=== PATIENT | female | born 1955 | race Caucasian/White ===

== ENCOUNTER 2020-11-03 04:55 | Observation (INO) ==
--- NOTE | 2020-10-01 11:28 | PAT Medication Instructions ---
Medication Instructions Date of Service October 01, 2020 Home Medications cholecalciferol (vitamin D3) [Vitamin D3] 4,000 unit PO QPM ibuprofen 400 mg PO Q6H PRN levothyroxine 62.5 mcg PO QAM magnesium oxide 400 mg PO QPM multivitamin 1 tab PO QPM omega 4-ytw-fza-fish oil [Fish Oil] 1 cap PO QPM ASK your surgeon for instructions ibuprofen 400 mg PO Q6H PRN STOP taking 2 weeks before surgery (or as soon as possible if surgery is within 2 weeks) omega 2-hec-yrx-fish oil [Fish Oil] 1 cap PO QPM Take morning of surgery With a small sip of water, OTHERWISE NOTHING TO EAT OR DRINK AFTER MIDNIGHT: levothyroxine 62.5 mcg PO QAM Take evening before surgery cholecalciferol (vitamin D3) [Vitamin D3] 4,000 unit PO QPM magnesium oxide 400 mg PO QPM multivitamin 1 tab PO QPM Other Notes If you have any questions please call us at [phone] or [phone] or [phone] or [phone]
--- NOTE | 2020-10-05 08:19 | History & Physical Report ---
Date of Service October 05, 2020 Date of surgery: 11/03/20 Procedure: Right Total Knee Arthroplasty Assessment & Plan (1) Arthritis of right knee: Risks and benefits of procedure discussed in detail today, patient would like to proceed with a Right total knee replacement at [facility] as scheduled. will obtain medical clearance from Dr Chaidez prior to surgery as well as obtain PATs at [facility]. Will place on ASA 81mg po bid x 1 month post op, f/u 2 weeks post op for routine post-operative care and x-ray, sooner if having any problems. will make arrangements for HHPT at the time of discharge. At this point in time, has failed conservative measures and would like to proceed with surgical intervention. The risks and benefits have been discussed including, but not limited to, risk of infection, nerve injury, stiffness, loss of motion, failure to improve, etc. Reasonable outcomes and options of treatment were discussed. An explanation of appropriate alternatives to the procedure that may be advantageous were discussed and their risks and benefits, as well as the risks and benefits of not proceeding with treatment. I offered to answer any additional inquiries concerning the treatment involved. All the patient's questions were answered. The patient is agreeable, understanding of the treatment plan and alternatives, and wishes to proceed with the treatment plan. History of Present Illness Chief Complaint: Right knee pain Primary Care Provider: NO PCP Sue is a 64 year old female who complains of Right knee pain, presents for pre-op evaluation prior to a Right total knee replacement by Dr Melgar at [facility]. She complains of pain, decreased range of motion, instability and stiffness in her Right knee. She states that the symptoms have been chronic and non-traumatic and are moderate-severe. The pain is described as aching, sharp and throbbing. Her symptoms are aggravated by ascending stairs, daily activities, first steps while awake walking. Prior NSAIDs include IBU and Aleve. she has been treated with previous visco injections in the past without much relief. she had prior right knee scope in 2017, Dr Melgar Performed RIGHT KNEE ARTHROSCOPIC PARTIAL MEDIAL MENISCECTOMY CHONDROPLASTY PATELLA and medial femoral condyle. Allergies Allergy/AdvReac Type Severity Reaction Status Date / Time No Known Allergies Allergy Verified 09/15/20 13:18 Home Medications Medication Instructions Recorded Confirmed Type cholecalciferol (vitamin D3) 4,000 unit PO QPM 09/15/20 09/15/20 History [Vitamin D3] ibuprofen 400 mg PO Q6H PRN 09/15/20 09/15/20 History levothyroxine 62.5 mcg PO QAM 09/15/20 09/15/20 History magnesium oxide 400 mg PO QPM 09/15/20 09/15/20 History multivitamin 1 tab PO QPM 09/15/20 09/15/20 History omega 7-msm-rvu-fish oil [Fish Oil] 1 cap PO QPM 09/15/20 09/15/20 History Past Med/Surg History Medical History Arthritis Cancer BASAL CELL Cardiac murmur HX Chronic back pain NECK/LOWER BACK Hypothyroidism Tachycardia HX -NO LONGER F/U CARDIOLOGY Surgical History Elective surgery VAGINAL BX H/O cardiac radiofrequency ablation 2008-[facility] History of cardiac cath 2008 [facility]-NO STENTS History of colonoscopy History of eye surgery MUSCLE REPAIR History of surgery on arm History of tonsillectomy Nausea and vomiting after administration of anesthetic agent Family History Mother Family hx of colon cancer Social History Smoking Status: Never smoker Second Hand Exposure: Yes (PARENTS SMOKED); Hx Alcohol Use: Yes Alcohol type: other Hx Substance Use: No Preferred Language: Chadian Communication Ability: Effective Sports Marketing Specialist Required: No Beliefs That Will Affect Care: None Current Living Situation: Spouse Feels Safe at Home: Yes Assistive Devices: Glasses Review of Systems Review of Systems: All systems reviewed & are unremarkable except as noted in HPI & below Constitutional: no fever, no chills and no sweats Respiratory: no cough and no dyspnea Cardiovascular: no chest pain, no dyspnea and no orthopnea Gastrointestinal: no abdominal pain, no nausea and no vomiting Musculoskeletal: as per Subjective / HPI Physical Exam Physical Exam: HT: 5ft 7in WT: 90.7kg BP: 116/80 Pulse: 84 Constitutional: WD/WN, vitals as above no acute distress Respiratory: normal respiratory effort, lungs clear to auscultation no res piratory distress, no labored breathing and does not use accessory muscles Cardiovascular: RRR, no murmur, no edema Gastrointestinal (Abdomen): normal bowel sounds, soft, nontender, no hepatosplenomegaly Musculoskeletal: Knee: + knee abnormal to inspection (Right Knee-), + effusion (+1 effusion), + surgical incision (well healed portals), + limited ROM of knee (ROM 0/3/110), + knee ROM with crepitation, + joint line tenderness (medial joint line) and + Sabrina's sign positive; no deformity, no skin erythema, no ecchymosis, no valgus laxity, no varus laxity, anterior drawer test negative, Sheldon's sign negative and pivot shift test negative Results & Data Results & Data ([facility]) Diagnostic Findings Right Knee X-ray: Right knee series showing advanced degenerative changes to the right knee, narrowing of the medial compartment and patello-femoral joint with patellar spurring noted, findings showing joint space narrowing of the medial compartment and patello-femoral joint, osteophyte formation and subchondral sclerosis noted. overall varus alignment. no acute bony pathology noted.
--- NOTE | 2020-10-05 12:41 | Anesthesiology Consultation ---
Date of Service October 05, 2020 Assessment & Plan (1) Encounter for pre-operative examination: COVID screening: Per assessment on 10/05: Travel screen negative, no known COVID- 19 positive contacts or current COVID-19 related symptoms. Surgeon arranging preop COVID testing. Awaiting results. Chart Review Chart Review: Acceptable Risk for Surgery and Patient seen in Pre Admission Testing Teaching & Discussion Pre-Anesthesia Teaching/Discussion Notes: Instructed NPO after midnight before surgery,except medications with 15 cc of water. Medication instructions provided according to the PAT guidelines. History Surgery Operation Date: 11/03/20 08:00 Proposed Procedures p Right Total Knee Arthroplasty - Myron Melgar DO Height/Weight Height: 5 ft 7 in Weight: 91.9 kg Allergies Allergy/AdvReac Type Severity Reaction Status Date / Time No Known Allergies Allergy Verified 09/15/20 13:18 Medications Home Medications Medication Instructions Recorded Confirmed Last Taken cholecalciferol (vitamin D3) 4,000 unit PO QPM 09/15/20 09/15/20 Unknown [Vitamin D3] ibuprofen 400 mg PO Q6H PRN 09/15/20 09/15/20 Unknown levothyroxine 62.5 mcg PO QAM 09/15/20 09/15/20 Unknown magnesium oxide 400 mg PO QPM 09/15/20 09/15/20 Unknown multivitamin 1 tab PO QPM 09/15/20 09/15/20 Unknown omega 8-uag-ror-fish oil [Fish Oil] 1 cap PO QPM 09/15/20 09/15/20 Unknown Past Medical History Medical History Arthritis Cancer BCC Chronic back pain Neck/LBP Hypothyroidism Tachycardia remote hx s/p ablation (2008), no known recurrences, no issues since Exercise / Class Metabolic Activity II 4-5 Yardwork/Stairs/Walk up hill Past Family History Family History Mother Family hx of colon cancer Past Surgical History Surgical History H/O cardiac radiofrequency ablation 2008 ([facility]) History of biopsy Vaginal History of cardiac cath 2008 ([facility]) > no stents History of colonoscopy History of eye surgery Muscle repair History of surgery on arm History of tonsillectomy Past Anesthesia History No Hx of Anesthesia Complications (except remote hx PONV) History of PONV History of PONV (remote hx (no issue with more recent surgeries)) Social History Smoking Status: Never smoker Do You Dip or Chew Tobacco: No Hx Alcohol Use: Yes Alcohol type: other (Rare wine cooler) Hx Substance Use: No Review of Systems Patient denies chest pain, shortness of breath, dyspnea on exertion, fever, chills, cough, wheezing, palpitations. Physical Exam Vital Signs VITALS BP 129/75 P 93 TEMP 98.2 SP02 95%RA RESP 16 PHYSICAL Full cervical extension range of motion. Full TMJ range of motion. TMD 4 finger breaths Mallampati Score 3 Dentition: missing molars Lungs: clear throughout to auscultation Cardiac: regular rate and rhythm, no murmurs noted Spine: normal Carotid arteries: negative bruit Extremities: no edema Lab Results Anesthesia Preop Results Results Anesthesia Widget: WBC 4.50 K/uL (4.8-10.8) L 10/05/20 Hgb 13.0 g/dL (12.0-16.0) 10/05/20 Hct 39.9 % (37-47) 10/05/20 Plt 175 K/uL (130-400) 10/05/20 Na 143 mmol/L (136-145) 10/05/20 K 3.9 mmol/L (3.5-5.1) 10/05/20 Cl 109 mmol/L (98-107) H 10/05/20 CO2 28 mmol/L (21-32) 10/05/20 BUN 21 mg/dl (7-18) H 10/05/20 Creat 0.68 mg/dl (0.6-1.2) 10/05/20 Glucose Level 110 mg/dl (70-99) H 10/05/20 PT 9.8 Seconds (9.0-12.0) 10/05/20 PTT 21.9 Seconds (21.0-31.0) 10/05/20 INR 1.0 (0.9-1.1) 10/05/20 HA1c 5.7 % (4.5-5.6) H 10/05/20 Urine Color Yellow 10/05/20 Urine Appearance Clear (Clear) 10/05/20 Urine pH 6.0 (4.5-7.5) 10/05/20 Urine Specific [place] 1.025 (1.000-1.030) 10/05/20 Urine Protein Negative (Negative) 10/05/20 Urine Glucose (UA) Negative (Negative) 10/05/20 Urine Ketones Negative (Negative) 10/05/20 Urine Blood Negative (Negative) 10/05/20 Urine Nitrite Negative (Negative) 10/05/20 Urine Bilirubin Negative (Negative) 10/05/20 Urine Urobilinogen Negative (Negative) 10/05/20 Urine Leukocyte Esterase Negative (Negative) 10/05/20 Blood Type A Positive 10/05/20 Antibody Screen POSITIVE A 10/05/20 Lab Comments: Blood bank aware of positive antibodies > nothing further needed preoperatively from PAT per blood bank. Testing Electrocardiogram Date: 10/05/20 Findings: + NSR @ (88) Chest X-Ray Date: 10/05/20 Findings: + NAD
[2020-11-03] MEDS ORDERED: ACETAMINOPHEN 500 MG TAB PO SCH ×2 (06:00→14:00)
[2020-11-03] MEDS ORDERED: TRANEXAMIC ACID 1,000 MG **IV Intra-op IV SCH (06:00)
[2020-11-03] MEDS ORDERED: FAMOTIDINE 20 MG TAB PO SCH (06:00)
[2020-11-03] MEDS ORDERED: CeleBREX 200 MG CAP PO SCH (06:00)
[2020-11-03] MEDS ORDERED: GABAPENTIN 600 MG DOSE PO SCH (06:00)
[2020-11-03] MEDS ORDERED: TRANEXAMIC ACID 1,000 MG **IV Pre-op IV SCH (06:00)
[2020-11-03] MEDS ORDERED: dexAMETHasone 4 MG TAB PO SCH (06:00)
[2020-11-03] MEDS ORDERED: ROPIVACAINE 0.5% HCL/PF 150 MG, BUPIVACAINE 0.75% MPF 20 ML, EPINEPHrine 30MG/30ML (OR ... INSTIL SCH (06:00)
[2020-11-03] MEDS ORDERED: ceFAZolin 2000MG 2,000 MG/15 ML SYR IV SCH (06:00)
[2020-11-03] MEDS ORDERED: METOCLOPRAMIDE HCL 10 MG TABLET PO SCH (06:00)
[2020-11-03] MEDS ORDERED: LR 500ML BOLUS, THEN 15ML/HR IV SCH (06:00)
[2020-11-03] MEDS ORDERED: LIDOCAINE 2%/EPINEPHRINE 1:200,000 20 ML SDV ONE (06:17)
[2020-11-03] MEDS ORDERED: EPINEPHrine INJ 1 MG/ML AMP ONE (06:17)
[2020-11-03] MEDS ORDERED: ROPIVACAINE 0.5% 5 MG/ML 30 ML VIAL ONE ×2 (06:18→06:19)
[2020-11-03] MEDS ORDERED: SODIUM CHLORIDE 0.9% INJ 10 ML VIAL ONE (06:20)
[2020-11-03] MEDS ORDERED: ORTHO JOINT ANESTHETIC ONE (06:37)
[2020-11-03] MEDS ORDERED: MIDAZOLAM HCL 1 MG/ML 2ML VIAL ONE ×2 (06:42)
--- NOTE | 2020-11-03 07:04 | History & Physical Bridge Note ---
Date of Service November 03, 2020 History & Physical Bridge Note I have examined the patient, reviewed the History & Physical and in the interval since the performance of the History & Physical I have noted the following changes of clinical significance: no changes noted
[2020-11-03] MEDS ORDERED: LABETALOL HCL IV 5 MG/ML 20ML IV PRN (07:17)
[2020-11-03] MEDS ORDERED: HYDROmorphone INJ 1 MG/ML SYRINGE IV PRN ×2 (07:17→08:49)
[2020-11-03] MEDS ORDERED: PHENYLEPHRINE 100MCG/ML 5ML SYR IV PRN (07:17)
[2020-11-03] MEDS ORDERED: fentaNYL citrate 100 MCG/2 ML VIAL IV PRN (07:17)
[2020-11-03] MEDS ORDERED: MEPERIDINE HCL 25 MG/ML CARP/VIAL IV PRN (07:17)
[2020-11-03] MEDS ORDERED: ePHEDrine sulfate 50 MG/ML AMP IV PRN (07:17)
[2020-11-03] MEDS ORDERED: ONDANSETRON INJ 2 MG/ML 2 ML VIAL IV PRN ×2 (07:17→08:49)
[2020-11-03] MEDS ORDERED: ATROPINE SULFATE 0.1 MG/ML 10ML SYR IV PRN (07:17)
[2020-11-03] MEDS ORDERED: KETAMINE 50 MG/5 ML SYRINGE ONE (07:19)
[2020-11-03] MEDS ORDERED: LIDOCAINE 2% 2 ML VIAL/AMP(20MG/ML) INFIL ONE (07:44)
[2020-11-03] MEDS ORDERED: GLYCOPYRROLATE 0.2 MG/ML VIAL ONE (07:44)
[2020-11-03] MEDS ORDERED: ONDANSETRON INJ 2 MG/ML 2 ML VIAL ONE (07:44)
[2020-11-03] MEDS ORDERED: PROPOFOL IV EMULSION 10 MG/ML 20 ML VIAL IV ONE ×2 (07:44→07:55)
[2020-11-03] MEDS ORDERED: KETOROLAC 30 MG/ML VIAL ONE (07:55)
--- NOTE | 2020-11-03 08:11 | Operative Report ---
Post Operative Report Pre & Post Diagnosis Operation Date: 11/03/20 07:00 Pre-Op Diagnosis: Right knee primary osteoarthritis. Post-Op Diagnosis: Right knee primary osteoarthritis. I identified the patient and participated in the time-out.: Yes Procedure Operation Date: 11/03/20 07:00 Actual Procedures p Right Total Knee Arthroplasty utilizing Segura & NephBarEye journey 2 patient matched total knee arthroplasty size femur 5 tibia 3 polyeleven patella 32 oval- Myron Melgar DO Surgeon Myron Melgar DO Purchasing Clerk [place] Estimated Blood Loss 5 Findings Consistent with Post-Op Diagnosis Patient presents with severe end-stage tricompartmental degenerative joint disease [id number] eburnated bone marginal osteophyte subchondral sclerosis subchondral cystic changes moderate to large effusion Specimens Bone and cartilage Drains Medium bore Hemovac Anesthesia Type MAC Epidural Regional Complications none Disposition Accompanied Patient To Recovery: No Disposition: Recovery Room Indications Patient presents with severe end-stage tricompartmental degenerative joint disease no response to conservative management physical therapy relative rest activity modification corticosteroid injection Visco supplementation relative rest activity modification Description of Procedure After proper prepping and draping of the Right lower extremity anterior midline incision was made over the region of the extensor extensor mechanism after meticulous hemostasis was obtained and maintained in subcutaneous tissues a medial parapatellar incision was made The patella was subluxed lateralward the medial lateral gutter were cleaned from any hypertrophic synovitis and scar tissue of the distal femoral block was placed and the distal femoral osteotomy cut was made subsequently the chamfers anterior and posterior osteotomy cuts were made utilizing the 4-in-1 block the tibia was subsequently subluxed anteriorward medial and ateral meniscal remnants were excised in their entirety remnants of the anterior and posterior cruciate ligaments were excised in their entirety excellent exposure of the proximal tibia was obtained the tibial osteotomy guide was placed on the proximal tibial osteotomy cut was made once again the knee was irrigated with copious amounts of sterile saline solution the patella was subsequently everted lateralward thickened scar tissue around the patella was removed the patella was subsequently cut utilizing a freehand technique and was drilled prepared for final preparation and placement of patella socially flexion-extension gaps were checked and the equal and symmetric trials were placed to the appropriate femoral and tibial trials with poly-spacer being placed for equal flexion and extension gaps and full range of motion including extension to 0 and flexion to 140 the trial components after having been taken to recovery range of motion was subsequently removed meticulous hemostasis was obtained and maintained subsequently a knee block injection of joint cocktail including ropivacaine 0.5% 150 mg. Bupivacaine 0.5% epinephrine 1-200,030 mL's toradol 30 mg dexamethasone 4 mg ketamine 10 mg clonidine 100 micrograms normal saline solution 30 mg was infiltrated into the soft tissues of the posterior knee medial lateral gutters and periosteal synovium special attention was paid to protect neurovascular structures at all times subsequently trial components having been removed the knee was irrigated with sterile saline solution. debris was removed the proximal tibia was subsequently prepared and was made ready for the placement of the tibial component tibial component was also cemented and tamped into position the femoral component was subsequently placed and cemented in the position the patellar component was subsequently cemented in position because hemostasis once again obtained and maintained wound having been thoroughly irrigated with debridement and debridement lavage was performed as well as a medial parapatellar incision closed with #1 Vicryl in interrupted fashion subcutaneous was closed with #2 Vicryl skin was closed with skin clips. PA-C was necessary for prepping and drapping as well as wound closure of deep fascia Sub cutaneous tissue and skin and was necessary for the case. A sterile compressive dressing was placed patient was taken to recovery in stable condition of report dictated by Ramón I attest to the content of the Intraoperative Record and any orders documented therein. Any exceptions are noted below. I attest to the content of the Intraoperative Record and any orders documented therein. Any exceptions are noted below.
[2020-11-03] MEDS ORDERED: NALOXONE HCL 0.4 MG/1 ML VIAL/CARP IV PRN ×2 (08:49→18:32)
[2020-11-03] MEDS ORDERED: SODIUM CHLORIDE 0.9% 1000ML 1,000 ML IV SCH (09:00)
--- NOTE | 2020-11-03 09:15 | XRay Report ---
XR knee RT 1 or 2V routine CLINICAL HISTORY: Postoperative evaluation. COMPARISON: None FINDINGS: Alignment of the total right knee arthroplasty is anatomic. No periprosthetic fracture or unexpected radiopaque foreign body. There are surgical drains. IMPRESSION: Expected findings following total right knee arthroplasty. ACT 112: Negative or not required by law. Electronically signed by: Jose E Sharma M.D. 11/03/2020 9:14 AM
--- NOTE | 2020-11-03 09:33 | Anesthesiology Progress Note ---
Date of Service November 03, 2020 Anesthesia Post Procedure Vital Signs Vital Signs: Temp Pulse Pulse Resp BP BP Pulse Ox 11/03/20 09:20 36.4 C L 82 16 117/69 96 11/03/20 09:10 78 20 108/60 97 11/03/20 09:00 82 20 124/84 97 11/03/20 08:50 89 20 131/61 98 11/03/20 08:46 36.6 C 94 H 20 132/61 96 11/03/20 05:24 36.5 C 82 20 162/85 H 98 Pain Intensity Right Knee: Pain Intensity: 0 Transfer of Care Handoff Completed per policy Notes Mental Status: alert / awake / arousable Patient Amnestic to Procedure: Yes Nausea / Vomiting: adequately controlled Pain: adequately controlled Airway Patency, RR, SpO2: stable & adequate BP & HR: stable & adequate Hydration State: stable & adequate Neuraxial Anesthesia: was administered and sensory block is resolving Anesthetic Complications: no major complications apparent and Pt Satisfied with anesthetic care
[2020-11-03] MEDS: oxyCODONE HCL IR 5 MG TAB (IMMEDIATE RELEASE) PO PRN ×2 (13:18→20:09)
[2020-11-03] MEDS ORDERED: bisacodyL 10 MG SUPP PR PRN (18:32)
[2020-11-03] MEDS ORDERED: MAGNESIUM HYDROXIDE SUSP 30 ML UDC PO PRN (18:32)
[2020-11-03] MEDS: ceFAZolin 2000MG 2,000 MG/15 ML SYR IV SCH (20:08)
[2020-11-03] MEDS: KETOROLAC 30 MG/ML VIAL IV SCH (20:09)
[2020-11-03] MEDS ORDERED: CHOLECALCIFEROL 1,000 UNITS 25 MCG TAB PO SCH (21:00)
[2020-11-03] MEDS ORDERED: MAGNESIUM OXIDE 400 MG TAB PO SCH (21:00)
[2020-11-03] MEDS ORDERED: SENNA 8.6 MG TAB PO SCH (21:00)
[2020-11-03] MEDS: ASPIRIN 81 MG ECTAB PO SCH (21:31)
[2020-11-03] MEDS: DOCUSATE SODIUM 100 MG CAP PO SCH (21:32)
[2020-11-04] MEDS: KETOROLAC 30 MG/ML VIAL IV SCH ×3 (03:09→14:11)
[2020-11-04 06:15] LABS: Hemoglobin 11.8 g/dL (12.0-16.0); Mean Corpuscular Hemoglobin 28.8 pg (25-34); Mean Corpuscular Hgb Conc 32.8 g/dL (32-36); Mean Corpuscular Volume 87.8 fL (80-100); Mean Platelet Volume 10.3 fL (7.4-10.4); Platelet Count 187 K/uL (130-400); RDW Coefficient of Variation 13.7 % (11.5-14.5); RDW Standard Deviation 44.2 fL (36.4-46.3); White Blood Count 10.01 K/uL (4.8-10.8)
[2020-11-04] MEDS: oxyCODONE HCL IR 5 MG TAB (IMMEDIATE RELEASE) PO PRN ×2 (06:25→12:27)
[2020-11-04] MEDS: ceFAZolin 2000MG 2,000 MG/15 ML SYR IV SCH (06:25)
[2020-11-04] MEDS ORDERED: LEVOTHYROXINE SODIUM 125 MCG TABLET PO SCH (06:30)
[2020-11-04 06:54] LABS: BUN Creatinine Ratio 29.1 (10-20); Calcium 8.9 mg/dl (8.5-10.1); Creatinine Clr Calc Pharmacy 98.7 ml/min; Est GFR (African American) 107.9 ml/min; Est GFR (Non-African American) 93.1 ml/min; Potassium 4.3 mmol/L (3.5-5.1)
[2020-11-04] MEDS ORDERED: MULTIVITAMIN TAB PO SCH (09:00)
[2020-11-04] MEDS: ASPIRIN 81 MG ECTAB PO SCH (09:10)
[2020-11-04] MEDS: DOCUSATE SODIUM 100 MG CAP PO SCH (09:10)
--- NOTE | 2020-11-04 10:09 | Orthopedic Progress Note ---
Date of Service November 04, 2020 Assessment & Plan (1) Arthritis of right knee: Postop day 1 status post right total knee arthroplasty. PT/OT protocols. Weightbearing as tolerated. DVT prophylaxis-aspirin p.o. twice daily, SCDs, ROBERT addison. Pain management as written. Overflow incontinence with urinary retention continue High catheter today. We will see if she is able to void. I have discussed this with the urology team. If she is unable to void today, we will reinsert the High catheter and let it remain for 7 days. At that point she can either follow-up with urology service in [place] or come back to [place] to see [facility] urology group to have the catheter removed and begin voiding trials. [place] planning-home health services upon discharge. Admission and Anticipated Discharge Date Admission Date: November 03, 2020 Subjective Postop day 1 Patient sitting up in bed awake and alert. No complaints this morning. Pain is controlled. Patient was held from discharge last night secondary to overflow incontinence which was felt to be secondary to her spinal anesthesia. This morning she continues to have the High catheter in which we will removed today. We discussed removal of catheter to see if she will be able to void. Physical Exam Physical Exam: Dressings are clean, dry, and intact. Calves are soft nontender. Neurovascular is intact. Toes are mobile. She has good dorsiflexion and plantarflexion of the right foot. Results & Data ([facility]) Vital Signs (Past 12 Hours) Vital Signs Temp Pulse Resp BP Pulse Ox 11/04/20 07:30 36.4 C L 73 16 130/72 93 11/04/20 03:11 36.6 C 83 16 137/73 98 Laboratory Results Laboratory Results WBC 10.01 K/uL (4.8-10.8) 11/04/20 05:23 RBC 4.10 M/uL (4.2-5.4) L 11/04/20 05:23 Hgb 11.8 g/dL (12.0-16.0) L 11/04/20 05:23 Hct 36.0 % (37-47) L 11/04/20 05:23 MCV 87.8 fL (80-100) 11/04/20 05:23 MCH 28.8 pg (25-34) 11/04/20 05:23 MCHC 32.8 g/dL (32-36) 11/04/20 05:23 RDW Std Deviation 44.2 fL (36.4-46.3) 11/04/20 05:23 RDW Coeff of Paramjit 13.7 % (11.5-14.5) 11/04/20 05:23 Plt Count 187 K/uL (130-400) 11/04/20 05:23 MPV 10.3 fL (7.4-10.4) 11/04/20 05:23 Sodium 139 mmol/L (136-145) 11/04/20 05:23 Potassium 4.3 mmol/L (3.5-5.1) 11/04/20 05:23 Chloride 109 mmol/L (98-107) H 11/04/20 05:23 Carbon Dioxide 26 mmol/L (21-32) 11/04/20 05:23 Anion Gap 4.0 (3-11) 11/04/20 05:23 BUN 20 mg/dl (7-18) H 11/04/20 05:23 Creatinine 0.68 mg/dl (0.6-1.2) 11/04/20 05:23 Est Cr Clr Drug Dosing 98.7 ml/min 11/04/20 05:23 Est GFR ( Amer) 107.9 ml/min 11/04/20 05:23 Est GFR (Non-Af Amer) 93.1 ml/min 11/04/20 05:23 BUN/Creatinine Ratio 29.1 (10-20) H 11/04/20 05:23 Glucose 110 mg/dl (70-99) H 11/04/20 05:23 Calcium 8.9 mg/dl (8.5-10.1) 11/04/20 05:23 COVID-19 [facility] 11/03/20 20:23 SARS-CoV-2, RNA, NAAT NEGATIVE (NEGATIVE) 11/03/20 20:23 Blood Type A Positive 11/03/20 05:47 Antibody Screen POSITIVE A 11/03/20 05:47 Antibody Identification Anti-Jka 11/03/20 05:47 Antibody ID Comment 11/03/20 05:47 Crossmatch See Detail 11/03/20 05:47 Impressions Knee X-Ray 11/03/20 08:51 XR knee RT 1 or 2V routine CLINICAL HISTORY: Postoperative evaluation. COMPARISON: None FINDINGS: Alignment of the total right knee arthroplasty is anatomic. No periprosthetic fracture or unexpected radiopaque foreign body. There are surgical drains. IMPRESSION: Expected findings following total right knee arthroplasty. ACT 112: Negative or not required by law. Electronically signed by: Jose E Sharma M.D. 11/03/2020 9:14 AM
--- NOTE | 2020-11-07 19:45 | Discharge Summary ---
Date of Service date of discharge: November 04, 2020 date of admission: 11/03/20 Admission HPI Per Admitting Provider Sue is a 64 year old female who complains of Right knee pain, presents for pre-op evaluation prior to a Right total knee replacement by Dr Melgar at [facility]. She complains of pain, decreased range of motion, instability and stiffness in her Right knee. She states that the symptoms have been chronic and non-traumatic and are moderate-severe. The pain is described as aching, sharp and throbbing. Her symptoms are aggravated by ascending stairs, daily activities, first steps while awake walking. Prior NSAIDs include IBU and Aleve. she has been treated with previous visco injections in the past without much relief. she had prior right knee scope in 2017, Dr Melgar Performed RIGHT KNEE ARTHROSCOPIC PARTIAL MEDIAL MENISCECTOMY CHONDROPLASTY PATELLA and medial femoral condyle. Principal Diagnosis right knee arthritis Discharge Exam Constitutional WD/WN, vitals as above Musculoskeletal Right Knee: NVDI, calf SNT, negative angelica sign. DP palpable, able to wiggle toes/ankle movement without difficulty. SONJA dressing clean dry and intact. expected post-operative bruising noted. Discharge Data Allergies Allergy/AdvReac Type Severity Reaction Status Date / Time No Known Allergies Allergy Verified 11/03/20 05:30 Procedures Performed Operation Date: 11/03/20 07:00 Actual Procedures p Right Total Knee Arthroplasty(Right) - Myron Melgar, Ordered Studies 11/03/20 05:00 US - OR guided needle placemen Routine Hospital Course (1) Arthritis of right knee: Postop day 1 status post right total knee arthroplasty. PT/OT protocols. Weightbearing as tolerated. DVT prophylaxis-aspirin p.o. twice daily, SCDs, ROBERT addison. Pain management as written. Overflow incontinence with urinary retention continue High catheter today. We will see if she is able to void. I have discussed this with the urology team. If she is unable to void today, we will reinsert the High catheter and let it remain for 7 days. At that point she can either follow-up with urology service in [place] or come back to [place] to see [facility] urology group to have the catheter removed and begin voiding trials. DC planning-home health services upon discharge. Total Time Total Time Spent Total Time Spent (In Minutes): 20 Total Time Includes: Examination of the Patient, Discharge Planning and Medication Reconciliation Discharge Plan Discharge Items Patient Disposition: Home - Home Health Services Reason For Visit: Z01.818, Primary Osteoarthritis, Right Knee Discharge Diagnosis: right total knee replacement Activity: Per Instructions section Lifting: Wait until after follow-up appointment Weightbearing Comment: WBAT with walker Non-emergency contact: Surgeon Call non-emergency contact if: you have any medication questions, your temperature is above 101, your wound has increased redness, your wound has increased drainage and your wound pain has increased Follow-up/Referrals: [facility] [Outside] (PER SURGEON'S OFFICE) Reymundo Chaidez [Primary Care Provider] - Diet: Regular Addtl Attending Provider Instructions: ACTIVITY RECOMMENDATIONS: SELF CARE INSTRUCTIONS AFTER TOTAL KNEE REPLACEMENT A. You may need to continue a physical therapy program after discharge from the hospital. There are several options available to you. Your doctor will assist you in selecting the best one for you. 1. An out-patient facility 2 to 3 times a week for therapy or home therapy. 2. Continue working on all exercises taught to you in the hospital. Your goals should be to increase bending of your knee to 90 degrees and beyond and to fully straighten your knee. B. You may progress at your own pace from walking with a walker or crutches to a cane; then to no assistive devices. C. Make walking a part of your daily routine. Be up as much as comfortable with rest periods throughout the day. Rest with leg elevation is very important. Use the ice wrap frequently for the first 3-4 weeks. D. There are no restrictions on activities. You may ride in a car, shop, participate in chairman emeritus and all social activities. E. Wear the long elastic stockings (ROBERT hose) 20 hours a day for 2 weeks after surgery. They can be removed several times a day for laundering and for a bath. F. You may shower, no tub baths until cleared by your doctor. SPECIAL CARE INSTRUCTIONS: VERY IMPORTANT TO READ AND REVIEW A. There are a few signs you need to watch for after you are home. Call [facility] if you notice any of the followin. Increased severe knee pain. Some pain is expected especially when you exercise. 2. Increased swelling in your leg or knee; pain or swelling of the calf muscle in either lower leg. 3. Any fluid drainage from the incision. 4. Shortness of breath or chest pain. B. Please call [facility] at if you have any concerns or questions about your operation or recovery. The doctor or his nurse will return your call promptly. C. You must take antibiotics before dental work, bladder, bowel or other surgery. Your doctor will provide you with a permanent care to carry describing this precaution. IMPORTANT: * REMEMBER TO TAKE ASPIRIN, 81 MG, TWICE DAILY FOR 4 WEEKS UNLESS OTHERWISE DIRECTED. THIS IS YOUR BLOOD THINNER. * HIGH RISK PATIENTS MAY BE PRESCRIBED A STRONGER BLOOD THINNER. THIS WILL BE PROVIDED AT DISCHARGE. * CALL IF INCREASED PAIN, REDNESS, DRAINAGE OR FEVER GREATER THAT 101. * WEAR ROBERT HOSE 20 HOURS PER DAY FOR 2 WEEKS. * SONJA Dressing- This is a large suction dressing covering your incision. This will help pull any excess drainage from the wound and allow your incision to heal properly. You may shower with this if you can keep the unit outside of the shower. If any bleeding or leakage is noted please call your doctor's office. This will remain on your incision for 7 days and then should be removed. This can be done yourself or by the home nursing staff if applicable. The entire unit is disposable once removed. Once removed, keep incision clean and dry. If redness or drainage is noted, please call your surgeon. * Should you have any further problems with urinary retention or incontinence, please contact your Urology service either locally or [facility]. ONCE SONJA IS REMOVED, FOLLOW THESE INSTRUCTIONS: DERMABOND Prineo- This is a mesh tape dressing that is covered with glue. It should remain in place until the incision is properly healed, usually 10-14 days. This dressing is designed to naturally slough off. You may trim the excess mesh tape as it peels off. Incision may be briefly wet in a shower. Dry immediately by blotting with a clean, dry towel. Do not bath or swim until instructed by your doctor. Do not scratch, rub, or pick at the dressing. Do not apply any topical ointments or lotions until dressing is completely removed and/or instructed by your doctor. There may be a small piece of suture material at one end of your incision. Do not pull or trim this. If it is bothersome or catching on clothing, you may cover it with a band-aid. IF INCISION IS LEAKING THROUGH DRESSING, CALL THE OFFICE . FOLLOW UP VISIT: If appointment is not already scheduled: Please call [facility] to make a follow-up appointment for 2 weeks after your surgery at . Pending Studies at Discharge: No Stand-Alone Forms: Anesthesia/Sedation, Adult, [facility], Opioid Pain Management Medications and DC Order Prescriptions: New acetaminophen 500 mg Tablet 1,000 mg PO Q8 21 Days Qty: 126 RF: 0 oxycodone 5 mg Tablet 5 - 10 mg PO Q6H PRN (Reason: pain) Qty: 30 RF: 0 celecoxib [Celebrex] 200 mg capsule 200 mg PO BID 30 Days Qty: 60 RF: 0 ondansetron HCl [Zofran] 4 mg tablet 8 mg PO Q8H PRN (Reason: nausea and vomiting) Qty: 20 RF: 0 aspirin 81 mg tablet,delayed release (DR/EC) 81 mg PO BID 30 Days Qty: 60 RF: 0 cefadroxil 500 mg capsule 500 mg PO BID 14 Days Qty: 28 RF: 0 Continued multivitamin Tablet 1 tab PO QPM RF: 0 levothyroxine 125 mcg Tablet 62.5 mcg PO QAM RF: 0 cholecalciferol (vitamin D3) [Vitamin D3] 50 mcg (2,000 unit) Capsule 4,000 unit PO QPM RF: 0 magnesium oxide 400 mg magnesium Tablet 400 mg PO QPM RF: 0 Discontinued ibuprofen 200 mg Capsule 400 mg PO Q6H PRN (Reason: Pain) RF: 0 omega 9-hhc-bug-fish oil [Fish Oil] 1,000 mg (120 mg-180 mg) Capsule 1 cap PO QPM RF: 0 Discharge Orders: Discharge Order (Routine); Ordered 11/04/20 Ordered By: Odell Shah/Other Patient Handouts: DVT Post Op Prevention Admission Data Admit Date/Time: 11/03/20 16:49 Attending Provider: Myron Melgar Admit Provider: Myron Melgar Primary Care Provider: Reymundo Chaidez Other Providers: [facility],Home Health Other Interventions: Discharge Summary Assessment (RN) Last Done: 11/04/20 15:10
== END 2020-11-04 16:01 | disposition home health service (06) ==
LOC: ASU 04:55 → 3E 04:55

== ENCOUNTER 2021-12-13 06:32 | Inpatient (IN) ==
--- NOTE | 2021-10-25 11:52 | PAT Medication Instructions ---
Medication Instructions Date of Service October 25, 2021 Home Medications levothyroxine 125 mcg tablet 62.5 mcg PO QAM multivitamin 1 tab PO QAM cholecalciferol (vitamin D3) 125 mcg (5,000 unit) tablet (Vitamin D3) 125 mcg PO QAM docosahexaenoic acid (dha)-epa capsule 1 cap PO QAM magnesium 500 mg tablet 500 mg PO QAM STOP taking 2 weeks before surgery docosahexaenoic acid (dha)-epa capsule 1 cap PO QAM magnesium 500 mg tablet 500 mg PO QAM DO NOT take the morning of surgery multivitamin 1 tab PO QAM cholecalciferol (vitamin D3) 125 mcg (5,000 unit) tablet (Vitamin D3) 125 mcg PO QAM Take morning of surgery With a small sip of water, OTHERWISE NOTHING TO EAT OR DRINK AFTER MIDNIGHT: levothyroxine 125 mcg tablet 62.5 mcg PO QAM Other Notes If you have any questions please call us at [phone] or [phone] or [phone] or [phone]
--- NOTE | 2021-10-27 12:26 | Anesthesiology Consultation ---
Date of Service October 27, 2021 Assessment & Plan (1) Encounter for pre-operative examination: Chart Review Chart Review: Acceptable Risk for Surgery (pending preop Covid testing results ) and Patient NOT seen in Pre Admission Testing Per PAT appt on 10/27/21, patient denies any recent travel or large group activities. No known Covid positive exposures or Covid related symptoms. No known Covid infection in the past 90 days. Pt is vaccinated for Covid. Preop Covid testing scheduled 12/09/21 = will await results. Educated on importance of self quarantining, social distancing and wearing mask in public for the patient one week prior to surgery and after Covid testing done Right TKA 11/03/20= Done under SAB at L3-4 with 1 attempt. No anesthesia issues per anesthesia record Teaching & Discussion Pre-Anesthesia Teaching/Discussion Notes: Instructed NPO after midnight before surgery,except medications with 15 cc of water. Medication instructions provided according to the PAT guidelines. History Surgery Operation Date: 12/13/21 09:40 Proposed Procedures p Left Total Knee Arthroplasty - Myron Melgar DO Height/Weight Height: 5 ft 7 in Weight: 90.2 kg Allergies Allergy/AdvReac Type Severity Reaction Status Date / Time No Known Allergies Allergy Verified 10/24/21 16:41 Medications Home Medications Medication Instructions Recorded Confirmed Last Taken levothyroxine 125 mcg tablet 62.5 mcg PO QAM 09/15/20 10/24/21 11/03/20 04:00 multivitamin 1 tab PO QAM 09/15/20 10/24/21 11/02/20 19:00 cholecalciferol (vitamin D3) 125 125 mcg PO QAM 10/24/21 10/24/21 Unknown mcg (5,000 unit) tablet (Vitamin D3) magnesium 500 mg tablet 500 mg PO QAM 10/24/21 10/24/21 Unknown omega-3 fatty acids See Rx Instructions .ROUTE .COMPLEX 10/27/21 10/27/21 Unknown Past Medical History Medical History Cancer BCC- removed Chronic back pain Neck/LBP Hypothyroidism Obesity Tachycardia Possible SVT. Remote hx s/p ablation (2008), no known recurrences, No issues since- no meds needed. Does not follow with cardio Exercise / Class Metabolic Activity II 4-5 Yardwork/Stairs/Walk up hill (one flight of stairs - no chest pain or SOB ) Past Family History Family History Mother Family hx of colon cancer Other No family history of adverse response to anesthesia Past Surgical History Surgical History H/O cardiac radiofrequency ablation 2008 ([facility]) History of arthroplasty of right knee History of biopsy Vaginal History of cardiac cath 2009 ([facility] [place]) > no stents History of colonoscopy History of eye surgery Muscle repair History of surgery on arm History of tonsillectomy Past Anesthesia History No Hx of Anesthesia Complications and No Family Hx of Anesthesia Complications History of PONV No Hx of Motion Sickness and History of PONV (In the past - no issues with right TKA in 10/2020) Social History Smoking Status: Never smoker Do You Dip or Chew Tobacco: No Hx Alcohol Use: Yes Alcohol type: other (Rare wine cooler) Hx Substance Use: No substance use type: does not use Review of Systems Rare reflux- diet dependent Occ snoring- no hx of sleep study Patient denies chest pain, shortness of breath, dyspnea on exertion, cough, wheezing, palpitations. No hx of seizures, stroke, ME. No hx of blood clots or blood transfusions Physical Exam Vital Signs VITALS BP 146/88 P 73 TEMP 98.3 SP02 98% RESP 16 Constitutional no acute distress ENMT Mouth: no TMJ clicking Thyromental Distance: > or= 3.5 Finger Breadths (3.5) Mallampati Class: I Temporary cap to molar Neck neck extension not limited Respiratory normal respiratory effort; no respiratory distress Auscultation: lungs clear to auscultation bilaterally; no wheezes Cardiovascular Rate/Rhythm: regular rate and regular rhythm Heart Sounds: no murmur Vessels: no carotid bruit Musculoskeletal Spine: no pain with cervical ROM Extremities: extremities normal to inspection Psychiatric Orientation: alert Lab Results Anesthesia Preop Results Results Anesthesia Widget: WBC 5.37 K/uL (4.8-10.8) 10/27/21 Hgb 13.6 g/dL (12.0-16.0) 10/27/21 Hct 40.5 % (37-47) 10/27/21 Plt 201 K/uL (130-400) 10/27/21 Na 139 mmol/L (136-145) 10/27/21 K 4.2 mmol/L (3.5-5.1) 10/27/21 Cl 104 mmol/L (98-107) 10/27/21 CO2 29 mmol/L (21-32) 10/27/21 BUN 15 mg/dl (6-23) 10/27/21 Creat 0.74 mg/dl (0.6-1.2) 10/27/21 Glucose Level 92 mg/dl (70-99(Fasting)) 10/27/21 PT 10.3 Seconds (9.0-12.0) 10/27/21 PTT 23.1 Seconds (21.0-31.0) 10/27/21 INR 1.0 (0.9-1.1) 10/27/21 HA1c 5.7 % (4.5-5.6) H 10/27/21 Urine Color Yellow 10/27/21 Urine Appearance Clear (Clear) 10/27/21 Urine pH 7.5 (4.5-7.5) 10/27/21 Urine Specific [place] 1.011 (1.000-1.030) 10/27/21 Urine Protein Negative (Negative) 10/27/21 Urine Glucose (UA) Negative (Negative) 10/27/21 Urine Ketones Negative (Negative) 10/27/21 Urine Blood Negative (Negative) 10/27/21 Urine Nitrite Negative (Negative) 10/27/21 Urine Bilirubin Negative (Negative) 10/27/21 Urine Urobilinogen Negative (Negative) 10/27/21 Urine Leukocyte Esterase Trace (Negative) H 10/27/21 Urine WBC (Auto) 5-10 /hpf (0-5) H 10/27/21 Urine RBC (Auto) 0-4 /hpf (0-4) 10/27/21 Urine Hyaline Casts (Auto) 1-5 /lpf (0-5) 10/27/21 Urine Epithelial Cells (Auto) 10-20 /lpf (0-5) H 10/27/21 Urine Bacteria (Auto) Negative (Negative) 10/27/21 Blood Type A Positive 10/27/21 Antibody Screen POSITIVE A 10/27/21 Testing Laboratory Results Blood bank informed of positive antibodies- no further work up needed Electrocardiogram Date: 10/27/21 Findings: + NSR @ (71bpm ) Normal EKG per cardio. Chest X-Ray Date: 10/27/21 Findings: + NAD
--- NOTE | 2021-11-22 09:45 | History & Physical Report ---
Date of Service November 22, 2021 date of surgery: 12/13/21 Procedure: Left Total Knee Arthroplasty Surgeon: Myron Melgar Assessment & Plan (1) Arthritis of knee, left: Plan: Risks and benefits of procedure discussed in detail today, patient would like to proceed with a left total knee replacement at [facility] as scheduled. will obtain medical clearance from Dr Chaidez prior to surgery as well as obtain PATs at [facility]. Will place on ASA 81mg po bid x 1 month post op, f/u 2 weeks post op for routine post-operative care and x-ray, sooner if having any problems. will make arrangements for HHPT at the time of discharge. At this point in time, has failed conservative measures and would like to proceed with surgical intervention. The risks and benefits have been discussed including, but not limited to, risk of infection, nerve injury, stiffness, loss of motion, failure to improve, etc. Reasonable outcomes and options of treatment were discussed. An explanation of appropriate alternatives to the procedure that may be advantageous were dis cussed and their risks and benefits, as well as the risks and benefits of not proceeding with treatment. I offered to answer any additional inquiries concerning the treatment involved. All the patient's questions were answered. The patient is agreeable, understanding of the treatment plan and alternatives, and wishes to proceed with the treatment plan. History of Present Illness Chief Complaint: left knee pain Primary Care Provider: Reymundo Marlylenard Sue is a 66 year old female who complains of left knee pain, presents for pre-op evaluation prior to a left total knee replacement by Dr Melgar at [facility]. She complains of pain, instability and stiffness in her left knee. She states that the symptoms have been chronic and non-traumatic and are moderate-severe. rates her pain as 7/10. The pain is described as aching, sharp and throbbing. Her symptoms are aggravated by ascending stairs, daily activities, first steps while awake walking. Prior NSAIDs include IBU and Aleve. she has undergone prior visco inj without much relief. Allergies Allergy/AdvReac Type Severity Reaction Status Date / Time No Known Allergies Allergy Verified 10/24/21 16:41 Home Medications Medication Instructions Recorded Confirmed Type levothyroxine 125 mcg tablet 62.5 mcg PO QAM 09/15/20 10/24/21 History multivitamin 1 tab PO QAM 09/15/20 10/24/21 History cholecalciferol (vitamin D3) 125 125 mcg PO QAM 10/24/21 10/24/21 History mcg (5,000 unit) tablet (Vitamin D3) magnesium 500 mg tablet 500 mg PO QAM 10/24/21 10/24/21 History omega-3 fatty acids See Rx Instructions .Route .COMPLEX 10/27/21 10/27/21 History Past Med/Surg History Medical History (Updated 11/22/21 @ 09:47 by Parker Wilson PA-C) Cancer BCC- removed Chronic back pain Neck/LBP Hypothyroidism Obesity Tachycardia Possible SVT. Remote hx s/p ablation (2008), no known recurrences, No issues since- no meds needed. Does not follow with cardio Surgical History (Updated 11/22/21 @ 09:47 by Parker Wilson PA-C) H/O cardiac radiofrequency ablation 2008 ([facility]) History of arthroplasty of right knee Right Total Knee Arthroplasty utilizing [employer] journey 2 patient matched total knee arthroplasty size femur 5 tibia 3 polyeleven patella 32 oval History of biopsy Vaginal History of cardiac cath 2008 ([facility] [place]) > no stents History of colonoscopy History of eye surgery Muscle repair History of surgery on arm History of tonsillectomy Family History Mother Family hx of colon cancer Other No family history of adverse response to anesthesia Social History Smoking Status: Never smoker Second Hand Exposure: Yes (hx as a child); Hx Alcohol Use: Yes Alcohol type: other (Rare wine cooler) Hx Substance Use: No Preferred Language: Faroese Communication Ability: Effective A R Collections Rep Required: No Beliefs That Will Affect Care: None marital status: Current Living Situation: Spouse Feels Safe at Home: Yes Assistive Devices: Glasses Review of Systems Review of Systems: All systems reviewed & are unremarkable except as noted in HPI & below Constitutional: no fever, no chills and no sweats Respiratory: no cough and no dyspnea Cardiovascular: no chest pain, no dyspnea and no orthopnea Gastrointestinal: no abdominal pain, no nausea and no vomiting Musculoskeletal: as per Subjective / HPI Physical Exam Physical Exam: HT: 5ft 7in WT: 90.2kg Constitutional: WD/WN, vitals as above no acute distress Respiratory: normal respiratory effort, lungs clear to auscultation no respiratory distress, no labored breathing and does not use accessory muscles Cardiovascular: RRR, no murmur, no edema Gastrointestinal (Abdomen): normal bowel sounds, soft, nontender, no hepatosplenomegaly Musculoskeletal: Left Knee Physical Exam ambulates with a limp, there is no erythema, warmth, ecchymosis or atrophy noted, +1 effusion, greatest tenderness over the medial joint line and anterior knee joint. negative patellar apprehension , mild crepitation with motion, lee's negative, posterior drawer negative. positive mcmurrays medially, negative anterior drawer, knee stable with valgus/varus stress. no extensor lag. pain with active range of motion, AROM 0/3/110, Passive ROM 0/3/115. No pain with active/passive ROM of ankle. Lower Extremity Strength normal. Lower Extremity Neuro-vascular is normal Results & Data Results & Data ([facility]) Diagnostic Findings Left Knee X-ray: left knee series confirm advanced degenerative changes to the left knee, greatest medial compartments and patellofemoral joint, showing joint space narrowing, osteophyte formation and subchondral sclerosis. no acute bony pathology noted.
[~2021-12-13 06:32] MED LIST: ACETAMINOPHEN 500 MG TAB PO SCH; BUPIVACAINE 0.5 % 5 MG/1 ML PF 10ML VIAL ONE; CeleBREX 200 MG CAP PO SCH; FAMOTIDINE 20 MG TAB PO SCH; GABAPENTIN 600 MG DOSE PO SCH; METOCLOPRAMIDE HCL 10 MG TABLET PO SCH; ROPIVACAINE 0.5% 5 MG/ML 30 ML VIAL ONE; ROPIVACAINE 0.5% HCL/PF 150 MG, BUPIVACAINE 0.75% MPF 20 ML, EPINEPHrine 30MG/30ML (OR ... INFIL SCH; TRANEXAMIC ACID 1,000 MG **IV Intra-op IV SCH; TRANEXAMIC ACID 1,000 MG **IV Pre-op IV SCH; ceFAZolin 2000MG 2,000 MG/15 ML SYR IV SCH; dexAMETHasone 4 MG TAB PO SCH
--- NOTE | 2021-12-13 07:15 | History & Physical Bridge Note ---
Date of Service December 13, 2021 History & Physical Bridge Note I have examined the patient, reviewed the History & Physical and in the interval since the performance of the History & Physical I have noted the following changes of clinical significance: no changes noted
[2021-12-13] MEDS: LR 500ML BOLUS, THEN 15ML/HR IV SCH ×2 (07:16→08:43)
[2021-12-13] MEDS ORDERED: MIDAZOLAM HCL 1 MG/ML 2ML VIAL ONE (08:48)
[2021-12-13] MEDS ORDERED: DEXAMETHASONE SOD INJ 4 MG/ML VIAL ONE ×2 (09:14)
[2021-12-13] MEDS ORDERED: ONDANSETRON INJ 2 MG/ML 2 ML VIAL ONE (09:15)
[2021-12-13] MEDS ORDERED: ORTHO JOINT ANESTHETIC ONE (09:15)
[2021-12-13] MEDS ORDERED: HYDROmorphone INJ 2 MG/ML SYR/VIAL IV PRN (09:51)
[2021-12-13] MEDS ORDERED: ATROPINE SULFATE 0.1 MG/ML 10ML SYR IV PRN (09:51)
[2021-12-13] MEDS ORDERED: PROMETHAZINE HCL 12.5 MG in SODIUM CHLORIDE 0.9% 50 ML IV PRN (09:51)
[2021-12-13] MEDS ORDERED: ePHEDrine sulfate 50 MG/ML AMP IV PRN (09:51)
[2021-12-13] MEDS ORDERED: ONDANSETRON INJ 2 MG/ML 2 ML VIAL IV PRN ×2 (09:51→12:17)
[2021-12-13] MEDS ORDERED: fentaNYL citrate 100 MCG/2 ML VIAL IV PRN (09:51)
--- NOTE | 2021-12-13 10:23 | Operative Report ---
Post Operative Report Pre & Post Diagnosis Operation Date: 12/13/21 08:50 Pre-Op Diagnosis: Osteoarthritis Left Knee Post-Op Diagnosis: Osteoarthritis Left Knee I identified the patient and participated in the time-out.: Yes Procedure Operation Date: 12/13/21 08:50 Actual Procedures p Left Total Knee Arthroplasty(Left) utilizing Segura & NephWorldWinger jourtelferner 2 patient matched total knee arthroplasty size femur 5 left tibia for polyeleven patella 32 oval- Myron Melgar DO Surgeon Myron eMlgar DO Warehouseman Odell KING Estimated Blood Loss 5 Findings Consistent with Post-Op Diagnosis Patient presents with severe end-stage tricompartmental degenerative joint disease left knee varus alignment subchondral sclerosis marginal osteophytes eburnated [id number] with subchondral cystic changes and moderate to large effusion Specimens Bone and cartilage Drains Medium bore Hemovac Anesthesia Type MAC Spinal Regional Complications none Disposition Accompanied Patient To Recovery: No Disposition: Recovery Room Indications Patient presents with severe end-stage tricompartmental degenerative joint disease having failed attempted conservative management clinic physical therapy anti-inflammatories relative rest activity modification corticosteroid injection viscosupplementation above intraoperative findings were noted Description of Procedure After proper prepping and draping of the left lower extremity anterior midline incision was made over the region of the extensor extensor mechanism after meticulous hemostasis was obtained and maintained in subcutaneous tissues a medial parapatellar incision was made The patella was subluxed lateralward the medial lateral gutter were cleaned from any hypertrophic synovitis and scar tissue of the distal femoral block was placed and the distal femoral osteotomy cut was made subsequently the chamfers anterior and posterior osteotomy cuts were made utilizing the 4-in-1 block the tibia was subsequently subluxed anteriorward medial and ateral meniscal remnants were excised in their entirety remnants of the anterior and posterior cruciate ligaments were excised in their entirety excellent exposure of the proximal tibia was obtained the tibial osteotomy guide was placed on the proximal tibial osteotomy cut was made once again the knee was irrigated with copious amounts of sterile saline solution the patella was subsequently everted lateralward thickened scar tissue around the patella was removed the patella was subsequently cut utilizing a freehand technique and was drilled prepared for final preparation and placement of patella socially flexion-extension gaps were checked and the equal and symmetric trials were placed to the appropriate femoral and tibial trials with poly-spacer being placed for equal flexion and extension gaps and full range of motion including extension to 0 and flexion to 140 the trial components after having been taken to recovery range of motion was subsequently removed meticulous hemostasis was obtained and maintained subsequently a knee block injection of joint cocktail including ropivacaine 0.5% 150 mg. Bupivacaine 0.5% epinephrine 1-200,030 mL's toradol 30 mg dexamethasone 4 mg ketamine 10 mg clonidine 100 micrograms normal saline solution 30 mg was infiltrated into the soft tissues of the posterior knee medial lateral gutters and periosteal synovium special attention was paid to protect neurovascular structures at all times subsequently trial components having been removed the knee was irrigated with sterile saline solution. debris was removed the proximal tibia was subsequently prepared and was made ready for the placement of the tibial component tibial component was al so cemented and tamped into position the femoral component was subsequently placed and cemented in the position the patellar component was subsequently cemented in position because hemostasis once again obtained and maintained wound having been thoroughly irrigated with debridement and debridement lavage was performed as well as a medial parapatellar incision closed with #1 Vicryl in interrupted fashion subcutaneous was closed with #2 Vicryl skin was closed with skin clips. PA-C was necessary for prepping and drapping as well as wound closure of deep fascia Sub cutaneous tissue and skin and was necessary for the case. A sterile compressive dressing was placed patient was taken to recovery in stable condition of report dictated by Ramón I attest to the content of the Intraoperative Record and any orders documented therein. Any exceptions are noted below.Due to the complex nature of the procedure, the entire surgery was performed with the operational assistance of Odell KING. The field technical assistant, under direct supervision, was involved in the actual performance of all aspects of the surgical procedure including hemostasis, tissue retraction and incision, instrument management, patient positioning, and wound closure. I attest to the content of the Intraoperative Record and any orders documented therein. Any exceptions are noted below.
--- NOTE | 2021-12-13 11:28 | XRay Report ---
XR knee LT 1 or 2V routine HISTORY: 66 years-old Female Surgical Post Op left knee total joint arthroplasty COMPARISON: None TECHNIQUE: 2 views of the left knee FINDINGS: Total joint arthroplasty with patellar resurfacing. Surgical drainage catheter is noted along with ex pected postoperative soft tissue swelling with deep tissue air. No acute fracture, malalignment or op aque foreign body. IMPRESSION: Total joint arthroplasty with expected postoperative changes. ACT 112: Negative or not required by law. The above report was generated using voice recognition software. It may contain grammatical, syntax o r spelling errors. Electronically signed by: Harlan Patricio M.D. 12/13/2021 11:27 AM
[2021-12-13] MEDS ORDERED: HYDROmorphone INJ 0.5 MG/0.5 ML SYR IV PRN (12:17)
[2021-12-13] MEDS ORDERED: MAGNESIUM HYDROXIDE SUSP 30 ML UDC PO PRN (12:17)
[2021-12-13] MEDS ORDERED: bisacodyL 10 MG SUPP PR PRN (12:17)
[2021-12-13] MEDS ORDERED: NALOXONE HCL 0.4 MG/1 ML VIAL/CARP IV PRN (12:17)
--- NOTE | 2021-12-13 14:29 | Anesthesiology Progress Note ---
Date of Service December 13, 2021 Anesthesia Post Procedure Vital Signs Vital Signs: Temp Pulse Pulse Resp BP Pulse Ox O2 Del Method 12/13/21 11:45 71 15 123/65 94 Room Air 12/13/21 11:35 36.3 C L 72 13 114/59 L 93 Room Air 12/13/21 11:25 76 14 106/58 L 96 Room Air 12/13/21 11:15 79 16 113/58 L 92 Room Air 12/13/21 11:06 36.3 C L 91 H 17 109/57 L 96 Room Air 12/13/21 07:25 36.7 C 84 18 141/72 H 95 Room Air Transfer of Care Handoff Completed per policy Notes Mental Status: alert / awake / arousable and participated in evaluation Nausea / Vomiting: adequately controlled Pain: adequately controlled Airway Patency, RR, SpO2: stable & adequate BP & HR: stable & adequate Hydration State: stable & adequate Neuraxial Anesthesia: was administered and sensory block is resolving Anesthetic Complications: no major complications apparent and Pt Satisfied with anesthetic care
[2021-12-13] MEDS: SODIUM CHLORIDE 0.9% 1000ML 1,000 ML IV SCH ×2 (16:24→22:45)
[2021-12-13] MEDS: ceFAZolin 2000MG 2,000 MG/15 ML SYR IV SCH (17:09)
[2021-12-13] MEDS: ACETAMINOPHEN 500 MG TAB PO SCH ×2 (17:09→22:45)
[2021-12-13] MEDS: CeleBREX 200 MG CAP PO SCH (20:53)
[2021-12-13] MEDS: DOCUSATE SODIUM 100 MG CAP PO SCH (20:53)
[2021-12-13] MEDS: ASPIRIN 81 MG ECTAB PO SCH (20:54)
[2021-12-13] MEDS ORDERED: SENNA 8.6 MG TAB PO SCH (21:00)
[2021-12-14] MEDS: ceFAZolin 2000MG 2,000 MG/15 ML SYR IV SCH (00:26)
[2021-12-14] MEDS: oxyCODONE HCL IR 5 MG TAB (IMMEDIATE RELEASE) PO PRN ×3 (04:11→13:17)
[2021-12-14] MEDS: ACETAMINOPHEN 500 MG TAB PO SCH ×2 (05:55→14:29)
[2021-12-14] MEDS ORDERED: LEVOTHYROXINE SODIUM 125 MCG TABLET PO SCH (06:30)
--- NOTE | 2021-12-14 07:29 | Orthopedic Progress Note ---
Date of Service December 14, 2021 Assessment & Plan (1) Arthritis of knee, left: Plan: POD #1 s/p left TKA pt/ot dvt proph with ROBERT/SCD/ASA plan for d/c home with HHPT Admission and Anticipated Discharge Date Admission Date: December 13, 2021 Subjective POD #1 s/p Left TKA Review of Systems Constitutional: no fever, no chills and no sweats Respiratory: no cough and no dyspnea Cardiovascular: no chest pain and no dyspnea Gastrointestinal: no abdominal pain, no nausea and no vomiting Physical Exam Physical Exam: Vital Signs Temp 36.4 C L 12/14/21 06:27 Pulse 83 12/14/21 06:27 Resp 18 12/14/21 06:27 BP 114/67 12/14/21 06:27 Pulse Ox 96 12/14/21 06:27 O2 Del Method 12/14/21 06:27 Intake & Output 12/13/21 12/14/21 12/14/21 18:59 06:59 18:59 Intake Total 3051.5 / 3051.5 Output Total 775 / 1325 550 / 1325 Balance 2276.5 / 1726.5 -550 / 1726.5 Weight 90.2 kg Intake: IV 1351.5 / 1351.5 Lactated Ringe r's 1,000 ml @ 15 1151.5 / 1151.5 mls/hr IV .Q24 H [facility] Rx#: [id number] Tranexamic Aci d / 0.7% NaCl 1, 200 / 200 000 mg In 100 ml @ 600 mls/hr IV TODAY@0600 [facility] Rx#:[id number] IV Perioperative 1400 / 1400 Oral 300 / 300 Output: Urine 500 / 500 Estimated Blood Loss 5 / 5 Urine Amount (Ca theter) 700 / 700 Straight 700 / 700 Drain Output 70 / 120 50 / 120 Left Knee Hemo vac 70 / 120 50 / 120 Other: # Unmeasured Voi ds 1 1 Weight Measureme nt Method Standing Scale Musculoskeletal: Left Leg: NVDI, calf SNT, negative angelica sign. DP palpable, able to wiggle toes/ankle movement without difficulty. dressing clean dry and intact. Results & Data ([facility]) Vital Signs (Past 12 Hours) Vital Signs Temp Pulse Pulse Resp BP Pulse Ox O2 Del Method 12/14/21 06:27 36.4 C L 83 18 114/67 96 Room Air 12/14/21 04:00 36.5 C 55 L 16 112/68 95 Room Air 12/13/21 22:10 36.8 C 80 16 127/68 92 Room Air
[2021-12-14] MEDS ORDERED: MULTIVITAMIN TAB PO SCH (09:00)
[2021-12-14] MEDS ORDERED: CHOLECALCIFEROL 5,000 UNITS 125 MCG TAB PO SCH (09:00)
[2021-12-14] MEDS ORDERED: MAGNESIUM OXIDE 400 MG TAB PO SCH (09:00)
[2021-12-14 09:08] LABS: Hematocrit (blood only) 34.8 % (34.1-44.9); Hemoglobin 11.4 g/dl (12.0-16.0); Mean Corpuscular Hemoglobin 27.7 pg (25.0-34.0); Mean Corpuscular Hgb Conc 32.8 g/dL (32.0-36.0); Mean Corpuscular Volume 84.7 fL (80.0-100.0); Mean Platelet Volume 10.6 fL (9.4-12.3); Platelet Count 155 K/uL (130-400); RDW Coefficient of Variation 13.4 % (11.5-14.5); RDW Standard Deviation 41.6 fL (36.4-46.3); Red Blood Count 4.11 M/uL (3.93-5.22); White Blood Count 11.29 K/ul (4.8-10.8)
[2021-12-14 09:27] LABS: BUN Creatinine Ratio 31.2 (10-20); Calcium 8.9 mg/dl (8.5-10.1); Creatinine Clr Calc Pharmacy 85.1 ml/min; Est GFR (African American) 94.6 ml/min; Est GFR (Non-African American) 81.6 ml/min; Potassium 4.4 mmol/L (3.5-5.1)
[2021-12-14] MEDS: ASPIRIN 81 MG ECTAB PO SCH (09:46)
[2021-12-14] MEDS: CeleBREX 200 MG CAP PO SCH (09:46)
[2021-12-14] MEDS: DOCUSATE SODIUM 100 MG CAP PO SCH (09:47)
[2021-12-15] MEDS ORDERED: MAGNESIUM OXIDE 400 MG TAB PO SCH (09:00)
--- NOTE | 2021-12-15 11:32 | Discharge Summary ---
Date of Service December 15, 2021 Admission HPI Per Admitting Provider Sue is a 66 year old female who complains of left knee pain, presents for pre- op evaluation prior to a left total knee replacement by Dr Melgar at [facility]. She complains of pain, instability and stiffness in her left knee. She states that the symptoms have been chronic and non-traumatic and are moderate-severe. rates her pain as 7/10. The pain is described as aching, sharp and throbbing. Her symptoms are aggravated by ascending stairs, daily activities, first steps while awake walking. Prior NSAIDs include IBU and Aleve. she has undergone prior visco inj without much relief. Admission Exam Per Admitting Provider Physical Exam: HT: 5ft 7in WT: 90.2kg Constitutional: WD/WN, vitals as above no acute distress Respiratory: normal respiratory effort, lungs clear to auscultation no respiratory distress, no labored breathing and does not use accessory muscles Cardiovascular: RRR, no murmur, no edema Gastrointestinal (Abdomen): normal bowel sounds, soft, nontender, no hepatosplenomegaly Musculoskeletal: Left Knee Physical Exam ambulates with a limp, there is no erythema, warmth, ecchymosis or atrophy noted, +1 effusion, greatest tenderness over the medial joint line and anterior knee joint. negative patellar apprehension , mild crepitation with motion, lee's negative, posterior drawer negative. positive mcmurrays medially, negative anterior drawer, knee stable with valgus/varus stress. no extensor lag. pain with active range of motion, AROM 0/3/110, Passive ROM 0/3/115. No pain with active/passive ROM of ankle. Lower Extremity Strength normal. Lower Extremity Neuro-vascular is normal Principal Diagnosis Left knee osteoarthritis Discharge Data Allergies Allergy/AdvReac Type Severity Reaction Status Date / Time No Known Allergies Allergy Verified 12/13/21 07:38 Procedures Performed Operation Date: 12/13/21 08:50 Actual Procedures p Left Total Knee Arthroplasty(Left) - Myorn Melgar DO Ordered Studies 12/13/21 05:00 US - OR guided needle placemen Routine Hospital Course (1) Arthritis of knee, left: Patient:SUE SPRING Admit Date:12/13/21 MR#:[id number] Att Phy:Myron Melgar,D.O. Acct ID:[id number] Dawna Phy:Reymundo Chaidez M.D. Date:1955 Fam Phy: Age:66 Location:3W Sex:F Room/Bed:[facility] cc: ~ *NOTICE TO RECEIVING LIBERTARIAN/AGENCY This information is strictly Confidential and protected under [place] law. [place] law prohibits you from making any further disclosure of this information unless further disclosure is expressly permitted by the written consent of the person to whom it pertains or is authorized by law. A general authorization for the release of medical or other information is not sufficient for this purpose. Hospital accepts no responsibility if the information is made available to any other person, INCLUDING THE PATIENT. Date of Service December 14, 2021 Assessment & Plan (1) Arthritis of knee, left: Plan: POD #1 s/p left TKA pt/ot dvt proph with ROBERT/SCD/ASA plan for d/c home with HHPT Admission and Anticipated Discharge Date Admission Date: December 13, 2021 Subjective POD #1 s/p Left TKA Review of Systems Constitutional: no fever, no chills and no sweats Respiratory: no cough and no dyspnea Cardiovascular: no chest pain and no dyspnea Gastrointestinal: no abdominal pain, no nausea and no vomiting Physical Exam Physical Exam: Vital Signs Temp 36.4 C L 12/14/21 06:27 Pulse 83 12/14/21 06:27 Resp 18 12/14/21 06:27 BP 114/67 12/14/21 06:27 Pulse Ox 96 12/14/21 06:27 O2 Del Method 12/14/21 06:27 Intake & Output 12/13/21 12/14/21 12/14/21 18:59 06:59 18:59 Intake Total 3051.5 / 3051.5 Output Total 775 / 1325 550 / 1325 Balance 2276.5 / 1726.5 -550 / 1726.5 Weight 90.2 kg Intake: IV 1351.5 / 1351.5 Lactated Ringe r's 1,000 ml @ 15 1151.5 / 1151.5 mls/hr IV .Q24 H [facility] Rx#: [id number] Tranexamic Aci d / 0.7% NaCl 1, 200 / 200 000 mg In 100 ml @ 600 mls/hr IV TODAY@0600 [facility] Rx#:[id number] IV Perioperative 1400 / 1400 Oral 300 / 300 Output: Urine 500 / 500 Estimated Blood Loss 5 / 5 Urine Amount (Ca theter) 700 / 700 Straight 700 / 700 Drain Output 70 / 120 50 / 120 Left Knee Hemo vac 70 / 120 50 / 120 Other: # Unmeasured Voi ds 1 1 Weight Measureme nt Method Standing Scale Musculoskeletal: Left Leg: NVDI, calf SNT, negative angelica sign. DP palpable, able to wiggle toes/ankle movement without difficulty. dressing clean dry and intact. Results & Data ([facility]) Vital Signs (Past 12 Hours) Vital Signs Temp Pulse Pulse Resp BP Pulse Ox O2 Del Method 12/14/21 06:27 36.4 C L 83 18 114/67 96 Room Air 12/14/21 04:00 36.5 C 55 L 16 112/68 95 Room Air 12/13/21 22:10 36.8 CA 80 16 127/68 92 Room Air Signed By: <Electronically signed by Parker Wilson PA-C> 12/14/21 0729 <Electronically signed by Burke Morgan MD> 12/14/21 0914 Total Time Total Time Spent Total Time Spent (In Minutes): 5 Discharge Plan Discharge Items Patient Disposition: Home - Home Health Services Reason For Visit: Osteoarthritis Left Knee Discharge Diagnosis: LEFT TOTAL KNEE REPLACEMENT Activity: Per Instructions section Weightbearing Comment: WBAT WITH WALKER Non-emergency contact: Surgeon Call non-emergency contact if: you have any medication questions, your temperature is above 101, your wound has increased redness, your wound has increased drainage and your wound pain has increased Follow-up/Referrals: Reymundo Chaidez [Primary Care Provider] - Diet: Regular Addtl Attending Provider Instructions: ACTIVITY RECOMMENDATIONS: SELF CARE INSTRUCTIONS AFTER TOTAL KNEE REPLACEMENT A. You may need to continue a physical therapy program after discharge from the hospital. There are several options available to you. Your doctor will assist you in selecting the best one for you. 1. An out-patient facility 2 to 3 times a week for therapy or home therapy. 2. Continue working on all exercises taught to you in the hospital. Your goals should be to increase bending of your knee to 90 degrees and beyond and to fully straighten your knee. B. You may progress at your own pace from walking with a walker or crutches to a cane; then to no assistive devices. C. Make walking a part of your daily routine. Be up as much as comfortable with rest periods throughout the day. Rest with leg elevation is very important. Use the ice wrap frequently for the first 3-4 weeks. D. There are no restrictions on activities. You may ride in a car, shop, participate in sanding machine tender automatic and all social activities. E. Wear the long elastic stockings (ROBERT hose) 20 hours a day for 2 weeks after surgery. They can be removed several times a day for laundering and for a bath. F. You may shower, no tub baths until cleared by your doctor. SPECIAL CARE INSTRUCTIONS: VERY IMPORTANT TO READ AND REVIEW A. There are a few signs you need to watch for after you are home. Call [facility] if you notice any of the followin. Increased severe knee pain. Some pain is expected especially when you exercise. 2. Increased swelling in your leg or knee; pain or swelling of the calf muscle in either lower leg. 3. Any fluid drainage from the incision. 4. Shortness of breath or chest pain. B. Please call [facility] at if you have any concerns or questions about your operation or recovery. The doctor or his nurse will return your call promptly. C. You must take antibiotics before dental work, bladder, bowel or other surgery. Your doctor will provide you with a permanent care to carry describing this precaution. IMPORTANT: * REMEMBER TO TAKE ASPIRIN, 81 MG, TWICE DAILY FOR 4 WEEKS UNLESS OTHERWISE DIRECTED. THIS IS YOUR BLOOD THINNER. * HIGH RISK PATIENTS MAY BE PRESCRIBED A STRONGER BLOOD THINNER. THIS WILL BE PROVIDED AT DISCHARGE. * CALL IF INCREASED PAIN, REDNESS, DRAINAGE OR FEVER GREATER THAT 101. * WEAR ROBERT HOSE 20 HOURS PER DAY FOR 2 WEEKS. * SONJA Dressing- This is a large suction dressing covering your incision. This will help pull any excess drainage from the wound and allow your incision to heal properly. You may shower with this if you can keep the unit outside of the shower. If any bleeding or leakage is noted please call your doctor's office. This will remain on your incision for 7 days and then should be removed. This can be done yourself or by the home nursing staff if applicable. The entire unit is disposable once removed. Once removed, keep incision clean and dry. If redness or drainage is noted, please call your surgeon. ONCE SONJA IS REMOVED, FOLLOW THESE INSTRUCTIONS: DERMABOND Prineo- This is a mesh tape dressing that is covered with glue. It should remain in place until the incision is properly healed, usually 10-14 days. This dressing is designed to naturally slough off. You may trim the excess mesh tape as it peels off. Incision may be briefly wet in a shower. Dry immediately by blotting with a clean, dry towel. Do not bath or swim until instructed by your doctor. Do not scratch, rub, or pick at the dressing. Do not apply any topical ointments or lotions until dressing is completely removed and/or instructed by your doctor. There may be a small piece of suture material at one end of your incision. Do not pull or trim this. If it is bothersome or catching on clothing, you may cover it with a band-aid. IF INCISION IS LEAKING THROUGH DRESSING, CALL THE OFFICE . FOLLOW UP VISIT: If appointment is not already scheduled: Please call [facility] to make a follow-up appointment for 2 weeks after your surgery at . Pending Studies at Discharge: No Stand-Alone Forms: My [facility], Smoking Cessation Medications and DC Order Prescriptions: New acetaminophen [Tylenol Extra Strength] 500 mg Tablet 1,000 mg PO Q8 21 Days Qty: 126 0RF celecoxib [Celebrex] 200 mg Capsule 200 mg PO BID 30 Days Qty: 60 0RF aspirin 81 mg Tablet,Delayed Release (Dr/Ec) 81 mg PO BID 30 Days Qty: 60 0RF oxycodone 5 mg Tablet 5 - 10 mg PO Q6H PRN (Reason: pain) Qty: 30 0RF Rx Instructions: Ongoing therapy, supervising Dr. Elia Melgar. Max 6 tabs in 24 hours docusate sodium 100 mg Capsule 100 mg PO BID 10 Days Qty: 20 0RF cefadroxil 500 mg capsule 500 mg PO BID 14 Days Qty: 28 0RF Continued multivitamin Tablet 1 tab PO QAM levothyroxine 125 mcg Tablet 62.5 mcg PO QAM magnesium 500 mg Tablet 500 mg PO QAM cholecalciferol (vitamin D3) [Vitamin D3] 125 mcg (5,000 unit) Tablet 125 mcg PO QAM Discontinued Fish Oil Capsule See Rx Instructions .ROUTE .COMPLEX Rx Instructions: 1 capsule daily Discharge Orders: Discharge Order (Routine); Ordered 12/14/21 Ordered By: Parker Shha/Other Patient Handouts: Arthritis: Exercise Admission Data Admit Date/Time: 12/13/21 11:06 Attending Provider: Myron Melgar Admit Provider: Myron Melgar Primary Care Provider: Reymundo Chaidez Other Providers: [facility],Home Health Other Interventions: Discharge Summary Assessment (RN) Last Done: 12/14/21 13:39
== END 2021-12-14 14:40 | disposition home health service (06) | DRG 470 ==
LOC: 3W 06:32 → ASU 06:32 → OBSVTOIN 11:06